=== PATIENT | female | born 1990 | race Caucasian/White ===

== ENCOUNTER 2022-03-02 11:40 | Outpatient (CLI) | payer BC, SELFPAY ==
--- NOTE | 2022-03-02 12:01 | US_ITS ---
WS: [id number] EARLY OBSTETRICAL ULTRASOUND (<14 WEEKS). HISTORY: VAGINAL BLEEDING,SECOND TRIMESTER COMPARISON: None available. Uterus is mildly enlarged. No intrauterine gestation is identified. There is a complex mass with scat tered cystic areas filling the endometrium with increased vascularity. Mass measures 5.2 x 7.1 cm and extends over a lengthof 6.7 cm. No free fluid in the cul-de-sac. RIGHT ovary is not visualized. LEFT ovary measures 3.5 x 2.2 x 3.2 cm. US/US OB <=14 wk fetus w transvag IMPRESSION: 1. No intrauterine gestation identified. 2. Hyperechoic mass within the endometrium with scattered cystic areas. Differ ential includes molar and and less likely retained products of concep tion. There is no intrauterine gestation.
== END 2022-03-02 11:41 | disposition home or self-care (01) ==
PROVIDERS: Visit Provider Family Medicine
DX: N85.8 Other specified noninflammatory disorders of uterus (principal)
CPT/HCPCS: 76801; 76817

== ENCOUNTER 2022-03-04 13:03 | Day surgery (SDC) | payer BC, SELFPAY ==
[2022-03-04] VITALS (14 sets, daily range): BP systolic 82–138; BP diastolic 56–89; PULSE 40–91; RESP 12–18; TEMP 36.2–36.7; O2SAT 99–100
--- NOTE | 2022-03-04 13:16 | US_ITS ---
WS: [id number] ULTRASOUND PELVIS TECHNIQUE: Transvaginal. CLINICAL INFORMATION: molar preg LMP: : No. COMPARISON: March 02, 2022 FINDINGS: No intrauterine gestation. Again seen is complex echogenic masslike tissue distending the e ndometrial canal today mainly in the lower uterine segment extending into the cervix. This is improve d compared to previous. Today this measures approximately 5.9 x 4.0 X 2.5 cm. Previously this measure d 5.2 x 7.1 x 6.7 cm Recommend Follow-up to resolution. Uterus Orientation: Anteverted. Size: 10.0 x 4.3 x 4.7 cm Endometrium: Thickened Endometrium thickness: 18 Mm. Adnexa: Ovaries not evaluated today due to patient's pain Free fluid: Trace Other findings: None. US/US transvaginal [id number] IMPRESSION: 1. Persistent masslike echogenic tissue with distention of the endometrial can al suspicious for molar improved compared to previous. Today this inv olves mainly the lower uterine segment and extends into the cervix. Recommend c ontinued surveillance to resolution and correlation beta-hCG.. 2. Thickened endometrium measuring 18 mm. 3. Trace free fluid in the cul-de-sac. 4. Ovaries not evaluated due to patient's pain.
--- NOTE | 2022-03-04 13:17 | W.ED.ABDPA2 ---
HPI - Abdominal Pain General: Chief Complaint: Abdominal Pain Stated Complaint: bleeding/n/v Time Seen by Provider: 03/04/22 13:11 History of Present Illness: 31-year-old presents due to lower abdominal pain nausea and nonbloody nonbilious vomiting. She has a known molar . Was seen by CREEL CLEANER today. She also reports some vaginal bleeding that has not changed. She presents back to the ER due to her abdominal pain nausea and vomiting being unbearable at home after she left the [employer] office. Review of Systems Narrative: - CONSTITUTIONAL: Denies weight loss, fever and chills. - HEENT: Denies changes in vision and hearing. - RESPIRATORY: Denies SOB and cough. - CV: Denies palpitations and CP. - GI: As above - : As above - MSK: Denies myalgia and joint pain. - SKIN: Denies rash and pruritus. - NEUROLOGICAL: Denies headache, weakness, numbness and syncope. - PSYCHIATRIC: Denies suicidal ideation [facility] PFSH: Family History (Updated 03/04/22 @ 09:32 by Ally Lacy LPN) Grandmother Cervical cancer Maternal Cancer Paternal--lung cancer Diabetes Maternal Grandfather Cancer paternal- colon cancer Family/Other Diabetes Maternal uncle Mother Hypertension Denies family history of CAD (coronary artery disease) Clotting disorder Hyperlipidemia Chronic kidney disease (CKD) Bleeding disorder Thyroid disease Stroke Physical Exam Narrative: EXAM NARRATIVE: - GENERAL: Alert and oriented x 3. No acute distress. Well-nourished. - EYES: EOMI. Anicteric. - HENT: Atraumatic, no C-spine tenderness. Moist mucous membranes. No scleral icterus. No cervical lymphadenopathy. - LUNGS: Clear to auscultation bilaterally. No accessory muscle use. Equal lung sounds bilaterally. No respiratory distress. - CARDIOVASCULAR: Regular rate and rhythm. No murmur. No JVD. - ABDOMEN: Soft, tender in bilateral lower quadrants, non-distended. Negative CVA tenderness bilaterally, no rebound or guarding, negative Marin sign. No palpable masses. - EXTREMITIES: No edema. Non-tender. - SKIN: No rashes or lesions. Warm. - NEUROLOGIC: No meningismus or focal neurological deficits. CN II-XII grossly intact. - PSYCHIATRIC: Cooperative. Appropriate mood and affect. Course Vital Signs: Vital signs: Vital Signs Temperature 98.0 F 03/04/22 13:08 Pulse Rate 61 03/04/22 15:00 Respiratory Rate 16 03/04/22 15:00 Blood Pressure 133/87 03/04/22 15:00 Pulse Oximetry 100 03/04/22 15:00 MDM - Abdominal Pain Medical Decision Making 31-year-old presents due to abdominal pain. She has known molar . There is white count elevation of 15. Discussed with [employer]EL CLE[employer]ER who specifically requested repeat ultrasound which reveals persistency of molar . Discussed again with CREEL CLEANER, Dr. Severino who will take patient to the OR and admit to their service. Further evaluation management per [employer]. Patient admitted in stable condition. Lab Data : 03/04/22 13:17 03/04/22 13:17 Labs/Radiology: Radiology Impressions Transvaginal US 03/04/22 13:16 IMPRESSION: 1. Persistent masslike echogenic tissue with distention of the endometrial canal suspicious for molar improved compared to previous. Today this involves mainly the lower uterine segment and extends into the cervix. Recommend continued surveillance to resolution and correlation beta-hCG.. 2. Thickened endometrium measuring 18 mm. 3. Trace free fluid in the cul-de-sac. 4. Ovaries not evaluated due to patient's pain. Laboratory Results WBC 15.3 10^3/uL (4.0-10.0) H 03/04/22 13:17 RBC 4.65 10^6/uL (4.1-5.3) 03/04/22 13:17 Hgb 13.6 g/dL (11.5-15.3) 03/04/22 13:17 Hct 41.0 % (37.0-47.0) 03/04/22 13:17 MCV 88.2 fl (81-99) 03/04/22 13:17 MCH 29.2 pg (28.0-34.0) 03/04/22 13:17 MCHC 33.2 g/dL (30.0-36.0) 03/04/22 13:17 RDW 13.7 % (12.1-15.1) 03/04/22 13:17 Plt Count 280 10^3/cmm (130-400) 03/04/22 13:17 MPV 11.7 fL (7.4-10.4) H 03/04/22 13:17 Neut % (Auto) 82.7 % 03/04/22 13:17 Lymph % (Auto) 13.2 % 03/04/22 13:17 [place] % (Auto) 3.1 % 03/04/22 13:17 Eos % (Auto) 0.0 % 03/04/22 13:17 Baso % (Auto) 0.5 % 03/04/22 13:17 Neut # (Auto) 12.68 10^3/uL (1.8-7.7) H 03/04/22 13:17 Lymph # (Auto) 2.0 10^3/uL (0.8-4.8) 03/04/22 13:17 [place] # (Auto) 0.5 10^3/uL (0.2-0.9) 03/04/22 13:17 Eos # (Auto) 0.0 10^3/uL (0.0-0.8) 03/04/22 13:17 Baso # (Auto) 0.1 10^3/uL (0.0-0.1) 03/04/22 13:17 Nucleated RBC % (auto) 0 % 03/04/22 13:17 Nucleated RBCs # 0.0 /100WBC 03/04/22 13:17 Sodium 139 mmol/L (136-145) 03/04/22 13:17 Potassium 3.9 mmol/L (3.5-5.1) 03/04/22 13:17 Chloride 103 mmol/L (98-107) 03/04/22 13:17 Carbon Dioxide 24 mmol/L (22-29) 03/04/22 13:17 Anion Gap 15.9 (5-19) 03/04/22 13:17 BUN 10 mg/dL (6-20) 03/04/22 13:17 Creatinine 0.6 mg/dL (0.5-0.9) 03/04/22 13:17 GFR Calculation 116.6 mL/min (90-130) 03/04/22 13:17 Glucose 124 mg/dL (65-115) H 03/04/22 13:17 Calculated Osmolality 288 mOsm/kg (285-295) 03/04/22 13:17 Calcium 9.2 mg/dL (8.5-10.5) 03/04/22 13:17 Total Bilirubin 0.4 mg/dL (0.15-1.2) 03/04/22 13:17 AST 21 U/L (0-32) 03/04/22 13:17 ALT 17 U/L (0-33) 03/04/22 13:17 Alkaline Phosphatase 63 IU/L (35-105) 03/04/22 13:17 Total Protein 7.8 g/dL (6.6-8.7) 03/04/22 13:17 Albumin 4.6 g/dL (3.5-5.2) 03/04/22 13:17 Globulin 3.2 g/dL (1.3-4.6) 03/04/22 13:17 Urine Color Red (Yellow) 03/04/22 15:46 Urine Appearance Bloody (CLEAR) A 03/04/22 15:46 Urine pH 5 (5-7) 03/04/22 15:46 Ur Specific [place] 1.025 (1.005-1.030) 03/04/22 15:46 Urine Protein 2+ (Negative) H 03/04/22 15:46 Urine Glucose (UA) Norm (Normal) 03/04/22 15:46 Urine Ketones 2+ (Negative) H 03/04/22 15:46 Urine Blood 3+ (Negative) H 03/04/22 15:46 Urine Nitrate Negative (Negative) 03/04/22 15:46 Urine Bilirubin 1+ (Negative) H 03/04/22 15:46 Urine Urobilinogen 1 mg/dL (Negative) H 03/04/22 15:46 Ur Leukocyte Esterase 1+ (Negative) H 03/04/22 15:46 Amorphous Sediment Not Reportable 03/04/22 15:46 Discharge Plan Discharge Condition: Stable Prescriptions: No Action albuterol sulfate 90 mcg/actuation HFA aerosol inhaler 2 puff INHALATION Q4H PRN (Reason: Shortness Of Breath) 0RF 28 mg iron- 800 mcg Tablet 1 tab PO DAILY 0RF Coding Level of Care Code ED 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
[2022-03-04 13:26] LABS: Basophils # 0.1 10^3/uL (0.0-0.1); Basophils % 0.5 %; Hemoglobin 13.6 g/dL (11.5-15.3); Lymphocytes % 13.2 %; Mean Corpuscular HGB Conc 33.2 g/dL (30.0-36.0); Mean Corpuscular Hemoglobin 29.2 pg (28.0-34.0); Mean Corpuscular Volume 88.2 fl (81-99); Mean Platelet Volume 11.7 fL (7.4-10.4); Monocytes # 0.5 10^3/uL (0.2-0.9); Monocytes % 3.1 %; Neutrophils # 12.68 10^3/uL (1.8-7.7); Neutrophils % 82.7 %; Nucleated Red Blood Cells % 0 %; Platelet Count 280 10^3/cmm (130-400); Red Blood Count 4.65 10^6/uL (4.1-5.3); Red Cell Distribution Width 13.7 % (12.1-15.1); White Blood Count 15.3 10^3/uL (4.0-10.0)
[2022-03-04 13:43] LABS: Alanine Aminotransferase 17 U/L (0-33); Albumin Level 4.6 g/dL (3.5-5.2); Alkaline Phosphatase 63 IU/L (35-105); Anion Gap 15.9 (5-19); Aspartate Amino Transferase 21 U/L (0-32); Blood Urea Nitrogen 10 mg/dL (6-20); Calcium 9.2 mg/dL (8.5-10.5); Carbon Dioxide 24 mmol/L (22-29); Chloride 103 mmol/L (98-107); Globulin 3.2 g/dL (1.3-4.6); Glomerular Filtration Rate 116.6 mL/min (90-130); Glucose 124 mg/dL (65-115); Osmolality Calculated 288 mOsm/kg (285-295); Potassium 3.9 mmol/L (3.5-5.1); Sodium 139 mmol/L (136-145); Total Bilirubin 0.4 mg/dL (0.15-1.2); Total Protein 7.8 g/dL (6.6-8.7)
[2022-03-04] MEDS: morphine 4 mg/mL SDV 1 mL IVP (14:02)
[2022-03-04] MEDS: ondansetron 2 mg/ML SDV 2 mL 4 MG IVP (14:02)
[2022-03-04] MEDS: sodium chloride 0.9% 1,000 ML 999 ML IV (14:03)
[2022-03-04 16:24] LABS: Bilirubin Urine 1+ (Negative); Blood Urine 3+ (Negative); Glucose Urine UA Norm (Normal); Ketones Urine 2+ (Negative); Leukocyte Esterase Urine 1+ (Negative); Nitrate Urine Negative (Negative); Protein Urine 2+ (Negative); Specific Gravity, Urine 1.025 (1.005-1.030); Urine Appearance Bloody (CLEAR); Urine Color Red (Yellow); Urobilinogen Urine 1 mg/dL (Negative); pH Urine 5 (5-7)
--- NOTE | 2022-03-04 17:01 | PM.CONSULT ---
Providers/Reason For Consult Consulting Physician/Specialty*: Dr Haleigh Severino MD Reason for Consult*: molar /nausea/vomiting/bleeding Requesting Physician: Dr. Stahl History of Present Illness History of Present Illness Charlee Houston is a 31 year old female who was seen in the office today to schedule surgery for a molar . That surgery was scheduled for 03/09/22. Shortly after being seen, the patient began feeling very nauseous and began vomiting. She cannot keep anything down. She presented to the ER where she was given medication to help the nausea and pain, but the patient continued to have vomiting. She had a repeat ultrasound which confirmed a molar . I have discussed with the patient moving her surgery up to today. She agrees to proceed. Review of Systems General: Reports: 10 or more systems reviewed and unremarkable except in HPI and below Medications/Allergies Home Medications Medication Instructions Recorded Confirmed Last Taken Type albuterol sulfate 90 mcg/actuation 2 puff INHALATION Q4H PRN 03/04/22 03/04/22 Unknown History aerosol inhaler vit no.95-ferrous 1 tab PO DAILY 03/04/22 03/04/22 03/03/22 History fumarate 28 mg-folic acid 800 mcg tablet () Allergies Allergy/AdvReac Type Severity Reaction Status Date / Time bee venom protein (honey bee) Allergy Severe ALGY-Anaphy Verified 03/04/22 14:12 laxis PFSH Acute PFSH: Medical History (Updated 03/04/22 @ 17:12 by Haleigh Severino MD) Molar No pertinent past medical history TBI (traumatic brain injury) 2020 Surgical History (Updated 03/04/22 @ 17:12 by Haleigh Severino MD) No pertinent past surgical history Family History (Updated 03/04/22 @ 09:32 by Ally Lacy LPN) Grandmother Cervical cancer Maternal Cancer Paternal--lung cancer Diabetes Maternal Grandfather Cancer paternal- colon cancer Family/Other Diabetes Maternal uncle Mother Hypertension Denies family history of CAD (coronary artery disease) Clotting disorder Hyperlipidemia Chronic kidney disease (CKD) Bleeding disorder Thyroid disease Stroke Female Reproductive History: : 1 Vitals/I&O/Wt Last Vital Signs Temp 98.0 F 03/04/22 13:08 Pulse 61 03/04/22 15:00 Resp 16 03/04/22 15:00 BP 133/87 03/04/22 15:00 Pulse Ox 100 03/04/22 15:00 03/04/22 03/04/22 03/04/22 06:59 14:59 22:59 Intake Total 1000 / 1000 Balance 1000 / 1000 Physical Exam Narrative: The patient is ill appearing. She has receptacle and is actively vomiting. Const: COMMON NORMALS: patient oriented x3 and no limitations GENERAL APPEARANCE: cooperative, in distress and ill appearing ORIENTATION/CONSCIOUSNESS: Yes awake, Yes oriented to person, Yes oriented to place and Yes oriented to time Resp: COMMON NORMALS: normal respiratory effort EFFORT & INSPECTION: Yes able to speak in complete sentences GI: COMMON NORMALS: Soft to palpation and non-tender PALPATION: Yes Soft to palpation Extremity: COMMON NORMALS: no calf tenderness Neuro: COMMON NORMALS: patient oriented x3 SENSORIUM/ORIENTATION: Yes oriented to person, Yes oriented to place and Yes oriented to time Psych: COMMON NORMALS: mental status grossly normal, Normal thought process present, cooperative, normal affect and speech normal SPEECH: Yes normal speech THOUGHT PROCESS: Normal thought process present Data : 03/04/22 13:17 03/04/22 13:17 A&P Assessment and plan (1) Molar : plan to take to operating room for suction D&C Surgery team has been notified Status: Acute Coding Level of Care Code Acute Digital Circuit Designer for Chg Fwd Diagnoses Molar O02.0
[2022-03-04] MEDS: fentaNYL 50 mcg/mL INJ 2mL IVP (17:02)
[2022-03-04 17:30] LABS: Add Urine Culture? Yes; RBC Urine TOO NUMEROUS TO CNT /hpf (0-2); Squamous Epithelial Cell Urine 0-4 /hpf (0-5); WBC Urine 0-4 /hpf (0-5)
--- NOTE | 2022-03-04 17:47 | ANES.PREANE2 ---
Pre-Anesthetic Assessment Height/Weight: Height 1.68 m Temp Pulse Resp BP Pulse Ox 98.0 F 61 16 133/87 100 03/04/22 13:08 03/04/22 15:00 03/04/22 15:00 03/04/22 15:00 03/04/22 15:00 Preop Diagnosis: molar Operation Date: 03/04/22 18:00 Proposed Procedures p Dilation And Curettage w/ Suction(Not Applicable) - Haleigh Severino MD Familial anesthetic complications: None Was Beta Beverly taken within 24 hours: N/A Was Clonidine taken within 24 hours: N/A Last intake: > 8hrs Social No alcohol and No tobacco Exam alert, oriented x 3, clear to auscultation bilaterally and regular rate & rhythm Airway Mallampati: Class II Dentition: full 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) Anesthetic Plan ASA status: 2 Anesthesia: General Risk of > 500 ml blood loss (7ml/kg in children): No Medications/Allergies Home Medications Medication Instructions Recorded Confirmed Last Taken Type albuterol sulfate 90 mcg/actuation 2 puff INHALATION Q4H PRN 03/04/22 03/04/22 Unknown History aerosol inhaler vit no.95-ferrous 1 tab PO DAILY 03/04/22 03/04/22 03/03/22 History fumarate 28 mg-folic acid 800 mcg tablet () Allergies Allergy/AdvReac Type Severity Reaction Status Date / Time bee venom protein (honey bee) Allergy Severe ALGY-Anaphy Verified 03/04/22 14:12 laxis [facility] Anesthesia Medical History (Updated 03/04/22 @ 17:12 by Haleigh Severino MD) Molar No pertinent past medical history TBI (traumatic brain injury) 2020 Surgical History (Updated 03/04/22 @ 17:12 by Haleigh Severino MD) No pertinent past surgical history Family History (Updated 03/04/22 @ 09:32 by Ally Lacy LPN) Grandmother Cervical cancer Maternal Cancer Paternal--lung cancer Diabetes Maternal Grandfather Cancer paternal- colon cancer Family/Other Diabetes Maternal uncle Mother Hypertension Denies family history of CAD (coronary artery disease) Clotting disorder Hyperlipidemia Chronic kidney disease (CKD) Bleeding disorder Thyroid disease Stroke Female Reproductive History : 1 Data Anesthesia : 03/04/22 13:17 03/04/22 13:17 Short CBC 03/04/22 Range/Units 13:17 WBC 15.3 H (4.0-10.0) 10^3/uL Hgb 13.6 (11.5-15.3) g/dL Hct 41.0 (37.0-47.0) % MCV 88.2 (81-99) fl Plt Count 280 (130-400) 10^3/cmm Neut % (Auto) 82.7 % Neut # (Auto) 12.68 H (1.8-7.7) 10^3/uL BMP 03/04/22 13:17 Sodium 139 Potassium 3.9 Chloride 103 Carbon Dioxide 24 BUN 10 Creatinine 0.6 Glucose 124 H Calcium 9.2 Liver Function 03/04/22 Range/Units 13:17 Total Bilirubin 0.4 (0.15-1.2) mg/dL AST 21 (0-32) U/L ALT 17 (0-33) U/L Alkaline Phosphatase 63 (35-105) IU/L Albumin 4.6 (3.5-5.2) g/dL Urine 03/04/22 Range/Units 15:46 Urine Color Red (Yellow) Urine Appearance Bloody A (CLEAR) Urine pH 5 (5-7) Ur Specific [place] 1.025 (1.005-1.030) Urine Protein 2+ H (Negative) Urine Glucose (UA) Norm (Normal) Urine Ketones 2+ H (Negative) Urine Nitrate Negative (Negative) Urine Bilirubin 1+ H (Negative) Ur Leukocyte Esterase 1+ H (Negative) Urine RBC Too numerous to cnt H (0-2) /hpf Urine WBC 0-4 H (0-5) /hpf Cardiac Studies: No Data to Display
[2022-03-04] MEDS: sodium chloride 0.9% 1,000 ML 30 ML IV (18:15)
--- NOTE | 2022-03-04 22:43 | PM.OP ---
Operative Report Date of procedure: March 04, 2022 Pre-op diagnosis: Preop Diagnosis molar Post-op diagnosis: same Post-op findings: 9 week sized uterus, normal appearing tissue removed Procedure done: suction dilation and curettage Specimens removed/disposition: products of conception to pathology Surgeon: Haleigh Severino Anesthesia: General Estimated blood loss (mL): 5 IV fluids (mL): 500 Complications: none Findings: 9 week sized uterus Condition: stable Disposition: PACU Procedure: The patient was taken to the operating room where general anesthesia was administered and found to be adequate. She was prepped and draped in the normal sterile fashion in the dorsal lithotomy position in [facility]. The bladder was drained. A weighted speculum was placed into the vagina and the anterior lip of the cervix grasped with a single-tooth tenaculum. The cervix was dilated to 16 maltese and a 8 mm suction catheter was introduced into the uterine cavity. The suction was activated and products of conception were removed. I made 3 passes with the suction catheter followed by 1 pass with a sharp curette. The texture was gritty. I made another 3 passes with the suction curette. There was minimal blood loss. The uterus clamped down and all instruments were removed. The patient tolerated the procedure well. Sponge lap and needle counts were correct x3. She was taken to the recovery room in stable condition.
--- NOTE | 2022-03-04 22:48 | PM.DCS ---
Discharge Providers Date of Admission: 03/04/22 Date of Discharge: March 04, 2022 Attending Provider at Admission: Dr. Severino Attending Provider at Discharge: Haleigh Severino MD Diagnoses at Discharge Discharge Diagnosis (1) Molar : Status: Acute Reason for Visit Reason for Visit: bleeding/14wk preg Hospital Course Hospital Course The patient was admitted from the ER for molar . She had suction d&c. She did well postoperatively and was ready for discharge. Discharge Data Studies Completed and Pending Completed Studies During Hospitalization Category Date Time Status US transvaginal [id number] Stat Ultrasound 03/04/22 13:16 Completed Pending at discharge Category Date Time Status Urine Culture Stat Lab 03/04/22 15:46 Received Radiology Impressions Transvaginal US 03/04/22 13:16 IMPRESSION: 1. Persistent masslike echogenic tissue with distention of the endometrial canal suspicious for molar improved compared to previous. Today this involves mainly the lower uterine segment and extends into the cervix. Recommend continued surveillance to resolution and correlation beta-hCG.. 2. Thickened endometrium measuring 18 mm. 3. Trace free fluid in the cul-de-sac. 4. Ovaries not evaluated due to patient's pain. Laboratory Results WBC 15.3 10^3/uL (4.0-10.0) H 03/04/22 13:17 RBC 4.65 10^6/uL (4.1-5.3) 03/04/22 13:17 Hgb 13.6 g/dL (11.5-15.3) 03/04/22 13:17 Hct 41.0 % (37.0-47.0) 03/04/22 13:17 MCV 88.2 fl (81-99) 03/04/22 13:17 MCH 29.2 pg (28.0-34.0) 03/04/22 13:17 MCHC 33.2 g/dL (30.0-36.0) 03/04/22 13:17 RDW 13.7 % (12.1-15.1) 03/04/22 13:17 Plt Count 280 10^3/cmm (130-400) 03/04/22 13:17 MPV 11.7 fL (7.4-10.4) H 03/04/22 13:17 Neut % (Auto) 82.7 % 03/04/22 13:17 Lymph % (Auto) 13.2 % 03/04/22 13:17 [place] % (Auto) 3.1 % 03/04/22 13:17 Eos % (Auto) 0.0 % 03/04/22 13:17 Baso % (Auto) 0.5 % 03/04/22 13:17 Neut # (Auto) 12.68 10^3/uL (1.8-7.7) H 03/04/22 13:17 Lymph # (Auto) 2.0 10^3/uL (0.8-4.8) 03/04/22 13:17 [place] # (Auto) 0.5 10^3/uL (0.2-0.9) 03/04/22 13:17 Eos # (Auto) 0.0 10^3/uL (0.0-0.8) 03/04/22 13:17 Baso # (Auto) 0.1 10^3/uL (0.0-0.1) 03/04/22 13:17 Nucleated RBC % (auto) 0 % 03/04/22 13:17 Nucleated RBCs # 0.0 /100WBC 03/04/22 13:17 Sodium 139 mmol/L (136-145) 03/04/22 13:17 Potassium 3.9 mmol/L (3.5-5.1) 03/04/22 13:17 Chloride 103 mmol/L (98-107) 03/04/22 13:17 Carbon Dioxide 24 mmol/L (22-29) 03/04/22 13:17 Anion Gap 15.9 (5-19) 03/04/22 13:17 BUN 10 mg/dL (6-20) 03/04/22 13:17 Creatinine 0.6 mg/dL (0.5-0.9) 03/04/22 13:17 GFR Calculation 116.6 mL/min (90-130) 03/04/22 13:17 Glucose 124 mg/dL (65-115) H 03/04/22 13:17 Calculated Osmolality 288 mOsm/kg (285-295) 03/04/22 13:17 Calcium 9.2 mg/dL (8.5-10.5) 03/04/22 13:17 Total Bilirubin 0.4 mg/dL (0.15-1.2) 03/04/22 13:17 AST 21 U/L (0-32) 03/04/22 13:17 ALT 17 U/L (0-33) 03/04/22 13:17 Alkaline Phosphatase 63 IU/L (35-105) 03/04/22 13:17 Total Protein 7.8 g/dL (6.6-8.7) 03/04/22 13:17 Albumin 4.6 g/dL (3.5-5.2) 03/04/22 13:17 Globulin 3.2 g/dL (1.3-4.6) 03/04/22 13:17 Ser , Semi-Qnt 5767.00 mIU/mL 03/04/22 13:17 Urine Color Red (Yellow) 03/04/22 15:46 Urine Appearance Bloody (CLEAR) A 03/04/22 15:46 Urine pH 5 (5-7) 03/04/22 15:46 Ur Specific [place] 1.025 (1.005-1.030) 03/04/22 15:46 Urine Protein 2+ (Negative) H 03/04/22 15:46 Urine Glucose (UA) Norm (Normal) 03/04/22 15:46 Urine Ketones 2+ (Negative) H 03/04/22 15:46 Urine Blood 3+ (Negative) H 03/04/22 15:46 Urine Nitrate Negative (Negative) 03/04/22 15:46 Urine Bilirubin 1+ (Negative) H 03/04/22 15:46 Urine Urobilinogen 1 mg/dL (Negative) H 03/04/22 15:46 Ur Leukocyte Esterase 1+ (Negative) H 03/04/22 15:46 Urine RBC Too numerous to cnt /hpf (0-2) H 03/04/22 15:46 Urine WBC 0-4 /hpf (0-5) H 03/04/22 15:46 Ur Squamous Epith Cells 0-4 /hpf (0-5) H 03/04/22 15:46 Amorphous Sediment Not Reportable 03/04/22 15:46 Urine Bacteria None /hpf (NONE) 03/04/22 15:46 Blood Type A Positive 03/04/22 17:56 Rho(D) Type Positive 03/04/22 17:56 Antibody Screen Negative 03/04/22 17:56 Vitals Last Vital Signs Temp 98.0 F 03/04/22 17:25 Pulse 47 L 03/04/22 18:10 Resp 18 03/04/22 17:25 BP 125/65 03/04/22 18:10 Pulse Ox 99 03/04/22 18:10 Discharge Plan Discharge Patient Disposition: Home Condition: Stable Prescriptions: Continued albuterol sulfate 90 mcg/actuation HFA aerosol inhaler 2 puff INHALATION Q4H PRN (Reason: Shortness Of Breath) 0RF 28 mg iron- 800 mcg Tablet 1 tab PO DAILY 0RF Discharge Orders: Discharge Order (Routine); Ordered 03/04/22 Ordered By: Haleigh Severino Referrals: Haleigh Severino MD [Physician] - Patient Instructions: Post Anesthesia Care Discharge Attestations Time Spent in Discharge Care*: less than 30 min Quality Metrics Clinical Quality Measures [ No reported AMI, CVA or VTE this stay] Coding Level of Care Code Acute Chg FW DC note Diagnoses Molar O02.0
--- NOTE | 2022-03-04 22:57 | SUR.PHASEI ---
patient came into pacu asleep, on room air. sat at 100%. samanta pad in place. no pain per faces.
--- NOTE | 2022-03-04 23:09 | SUR.PHASEI ---
patient taken to ops, says she wanted to see her . patient still drowsy but states no pain. samanta pad in place
== END 2022-03-04 23:37 | disposition home or self-care (01) ==
LOC: ER 13:18 → OR 17:12
PROVIDERS: Emergency Provider Emergency Medicine; Visit Provider Obstetrics & Gynecology
PROC: (CPT 59820; principal; 2022-03-04 18:00)
DX: O02.0 Blighted ovum and nonhydatidiform mole (principal)
CPT/HCPCS: 59820; 76830; 80053; 81001; 84702; 85025; 86850; 86900; 87086; 88305; J2250; J2270; J2405; J2704; J3010; J7030

== ENCOUNTER → 2022-05-17 15:01 | Outpatient (BNVA) | payer BC, SELFPAY | PROVIDERS: Visit Provider Obstetrics & Gynecology | DX: Z34.90 Encounter for supervision of normal pregnancy, unspecified, unspecified trimester (principal) | CPT/HCPCS: 84702 ==

== ENCOUNTER → 2022-06-17 10:30 | Outpatient (BNVA) | payer BC, SELFPAY | PROVIDERS: Visit Provider Obstetrics & Gynecology | DX: Z34.90 Encounter for supervision of normal pregnancy, unspecified, unspecified trimester (principal) | CPT/HCPCS: 80307; 81000; 87086 ==

== ENCOUNTER → 2022-06-28 15:00 | Outpatient (BNVA) | payer BC, SELFPAY | PROVIDERS: Visit Provider Obstetrics & Gynecology | DX: Z34.90 Encounter for supervision of normal pregnancy, unspecified, unspecified trimester (principal) | CPT/HCPCS: 84315; 85025; 86762; 86803; 87086; 87340; 87491; 87591; 87624; 87661; 87806 ==

== ENCOUNTER → 2022-07-29 09:32 | Outpatient (BNVA) | payer BC, SELFPAY | PROVIDERS: Visit Provider Obstetrics & Gynecology | DX: Z34.90 Encounter for supervision of normal pregnancy, unspecified, unspecified trimester (principal) | CPT/HCPCS: 84315; 87086 ==

== ENCOUNTER → 2022-08-25 15:40 | Outpatient (BNVA) | payer BC, SELFPAY | PROVIDERS: Visit Provider Obstetrics & Gynecology | DX: Z34.90 Encounter for supervision of normal pregnancy, unspecified, unspecified trimester (principal) | CPT/HCPCS: 84315; 84443; 86592 ==

== ENCOUNTER → 2022-09-20 08:25 | Outpatient (BNVA) | payer OTHER, BC, SELFPAY | PROVIDERS: Visit Provider Nurse Practitioner Women's Health | DX: Z34.90 Encounter for supervision of normal pregnancy, unspecified, unspecified trimester (principal); F41.9 Anxiety disorder, unspecified | CPT/HCPCS: 82950; 84315; 85025 ==

== ENCOUNTER 2022-11-07 23:55 | Outpatient (CLI) | payer OTHER, BC, SELFPAY ==
[2022-11-08] VITALS (8 sets, daily range): BP systolic 133–161; BP diastolic 75–87; PULSE 47–52; RESP 16; TEMP 36.1; BMI 39.9
[2022-11-08 01:22] LABS: Add Urine Microscopic? NO; Charge for UA Resulting for Rev
[2022-11-08 01:23] LABS: Basophils % 0.3 %; Eosinophils % 0.1 %; Hematocrit 31.6 % (37.0-47.0); Hemoglobin 10.3 g/dL (11.5-15.3); Lymphocytes # 2.3 10^3/uL (0.8-4.8); Lymphocytes % 25.9 %; Mean Corpuscular HGB Conc 32.6 g/dL (30.0-36.0); Mean Corpuscular Hemoglobin 28.1 pg (28.0-34.0); Mean Corpuscular Volume 86.3 fl (81-99); Mean Platelet Volume 12.7 fL (7.4-10.4); Monocytes # 0.6 10^3/uL (0.2-0.9); Monocytes % 6.1 %; Neutrophils # 6.01 10^3/uL (1.8-7.7); Neutrophils % 67.3 %; Nucleated Red Blood Cells % 0 %; Platelet Count 198 10^3/cmm (130-400); Red Blood Count 3.66 10^6/uL (4.1-5.3); Red Cell Distribution Width 13.6 % (12.1-15.1)
[2022-11-08 01:39] LABS: Glucose Urine UA Norm (Normal); Protein Urine Neg (Negative); Urine Appearance Clear (CLEAR); Urine Color Yellow (Yellow); pH Urine 5 (5-7)
[2022-11-08 01:40] LABS: Bilirubin Urine Neg (Negative); Blood Urine Neg (Negative); Ketones Urine Negative (Negative); Leukocyte Esterase Urine Negative (Negative); Nitrate Urine Negative (Negative); Urobilinogen Urine Neg (Negative)
[2022-11-08 01:48] LABS: Alanine Aminotransferase 10 U/L (0-33); Alkaline Phosphatase 95 U/L (35-105); Anion Gap 15.7 (5-19); Aspartate Amino Transferase 13 U/L (0-32); Blood Urea Nitrogen 13 mg/dL (6-20); Calcium 8.9 mg/dL (8.5-10.5); Carbon Dioxide 21 mmol/L (22-29); Chloride 105 mmol/L (98-107); Globulin 2.7 g/dL (1.3-4.6); Glucose 78 mg/dL (65-115); Osmolality Calculated 285 mOsm/kg (285-295); Potassium 3.7 mmol/L (3.5-5.1); Sodium 138 mmol/L (136-145); Total Bilirubin 0.2 mg/dL (0.15-1.2); Total Protein 5.7 g/dL (6.6-8.7); Uric Acid 4.6 mg/dL (2.4-5.7)
[2022-11-08 01:51] LABS: Urine Creatinine 121 mg/dL (28-217); Urine Protein Random 19 mg/dL
[2022-11-08 02:01] LABS: UPRO/UCREAT Ratio 0.16 mg/mg CR
== END 2022-11-08 02:40 | disposition home or self-care (01) ==
LOC: OPOB 11-08 00:17 → OBGYN 11-08 00:21
PROVIDERS: Visit Provider Obstetrics & Gynecology
DX: O16.9 Unspecified maternal hypertension, unspecified trimester (principal); Z3A.00 Weeks of gestation of pregnancy not specified
CPT/HCPCS: 36415; 59025; 80053; 81003; 82570; 84156; 84550; 85025; 99211

== ENCOUNTER 2022-11-12 11:28 | Outpatient (CLI) | payer BC, OTHER, SELFPAY ==
--- NOTE | 2022-11-12 11:47 | US_ITS ---
WS: [id number] BIOPHYSICAL PROFILE AMNIOTIC FLUID HISTORY: GHTN COMPARISON: 08/25/2022 position: Vertex. Cardiac activity: 153 bpm. Cervix: Not visualized. Placenta: Posterior, no previa or abruption. Placenta grade: 1 Parameters are as follows: Breathin Movement: 2 Tone: 2 Fluid volume: 2 Amniotic fluid: Single deep vertical pocket 5.2 cm. US/US OB BPP wo NST [id number] IMPRESSION: 1. Biophysical profile score: 8/8. 2. Normal amniotic fluid index.
--- NOTE | 2022-11-12 11:50 | XR_ITS ---
WS: [id number] XR chest 1V portable [id number] REASON FOR EXAM: GHTN FINDINGS: Thoracic aorta and mediastinum are within normal limits. Heart size is within normal limits. Mild distention of upper lobe pulmonary veins. No definite interstitial edema. No pleural effusions. Bony thorax intact without focal abnormality. XR/XR chest 1V portable [id number] IMPRESSION: Mild distention of upper lobe pulmonary veins.
--- NOTE | 2022-11-12 11:53 | ECG_ITS ---
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
[2022-11-12 11:54] VITALS: RESP 18
[2022-11-12 11:56] VITALS: BP 140/90; PULSE 79; BMI 39.6
[2022-11-12 12:00] VITALS: RESP 17; TEMP 36.8
[2022-11-12 12:06] LABS: Basophils % 0.5 %; Eosinophils % 0.1 %; Hemoglobin 11.6 g/dL (11.5-15.3); Lymphocytes # 1.5 10^3/uL (0.8-4.8); Lymphocytes % 19.9 %; Mean Corpuscular HGB Conc 33.1 g/dL (30.0-36.0); Mean Corpuscular Hemoglobin 27.8 pg (28.0-34.0); Mean Corpuscular Volume 83.9 fl (81-99); Mean Platelet Volume 12.5 fL (7.4-10.4); Monocytes # 0.4 10^3/uL (0.2-0.9); Monocytes % 5.4 %; Neutrophils # 5.68 10^3/uL (1.8-7.7); Neutrophils % 73.7 %; Nucleated Red Blood Cells % 0 %; Platelet Count 223 10^3/cmm (130-400); Red Blood Count 4.17 10^6/uL (4.1-5.3); Red Cell Distribution Width 13.3 % (12.1-15.1); White Blood Count 7.7 10^3/uL (4.0-10.0)
[2022-11-12 12:11] VITALS: BP 157/92; PULSE 79
[2022-11-12 12:27] LABS: Alanine Aminotransferase 9 U/L (0-33); Albumin Level 3.4 g/dL (3.5-5.2); Alkaline Phosphatase 106 U/L (35-105); Anion Gap 15.9 (5-19); Aspartate Amino Transferase 15 U/L (0-32); Blood Urea Nitrogen 11 mg/dL (6-20); Carbon Dioxide 20 mmol/L (22-29); Chloride 105 mmol/L (98-107); Globulin 3.1 g/dL (1.3-4.6); Glomerular Filtration Rate 115.9 mL/min (90-130); Glucose 87 mg/dL (65-115); Osmolality Calculated 283 mOsm/kg (285-295); Potassium 3.9 mmol/L (3.5-5.1); Sodium 137 mmol/L (136-145); Total Bilirubin 0.2 mg/dL (0.15-1.2); Total Protein 6.5 g/dL (6.6-8.7); Uric Acid 5.5 mg/dL (2.4-5.7)
[2022-11-12 12:29] LABS: Urine Appearance Hazy (CLEAR); Urine Color Yellow (Yellow); pH Urine 5 (5-7)
[2022-11-12 12:30] LABS: Add Urine Culture? No; Bacteria Urine 1+ /hpf; Bilirubin Urine Neg (Negative); Blood Urine Neg (Negative); Glucose Urine UA Norm (Normal); Ketones Urine Negative (Negative); Leukocyte Esterase Urine Trace (Negative); Mucus Urine 3+ /hpf; Nitrate Urine Negative (Negative); Protein Urine 1+ (Negative); Specific Gravity, Urine 1.015 (1.005-1.030); Urobilinogen Urine Neg (Negative); WBC Urine 0-4 /hpf (0-5)
[2022-11-12 12:37] LABS: Urine Creatinine 304 mg/dL (28-217)
[2022-11-12 12:40] LABS: UPRO/UCREAT Ratio 0.27 mg/mg CR; Urine Protein Random 81 mg/dL
[2022-11-12 13:53] VITALS: BP 139/84; PULSE 62
== END 2022-11-12 14:05 | disposition home or self-care (01) ==
LOC: OPOB 11:28 → OBGYN 11:29
PROVIDERS: Visit Provider Obstetrics & Gynecology
DX: O16.9 Unspecified maternal hypertension, unspecified trimester (principal); Z3A.00 Weeks of gestation of pregnancy not specified
CPT/HCPCS: 36415; 59025; 71045; 76819; 80053; 81001; 82570; 84156; 84550; 85025; 93005; 99211

== ENCOUNTER 2022-11-18 11:55 | Outpatient (CLI) | payer BC, OTHER, SELFPAY ==
[2022-11-18] VITALS (38 sets, daily range): BP systolic 148–188; BP diastolic 84–109; PULSE 73–100; RESP 18; O2SAT 92–97; BMI 39.5
[2022-11-18 12:27] LABS: Basophils # 0.1 10^3/uL (0.0-0.1); Basophils % 0.6 %; Hematocrit 35.3 % (37.0-47.0); Hemoglobin 11.8 g/dL (11.5-15.3); Lymphocytes # 1.4 10^3/uL (0.8-4.8); Mean Corpuscular HGB Conc 33.4 g/dL (30.0-36.0); Mean Corpuscular Hemoglobin 27.8 pg (28.0-34.0); Mean Corpuscular Volume 83.1 fl (81-99); Mean Platelet Volume 12.6 fL (7.4-10.4); Monocytes # 0.4 10^3/uL (0.2-0.9); Monocytes % 4.5 %; Neutrophils # 6.53 10^3/uL (1.8-7.7); Neutrophils % 77.5 %; Nucleated Red Blood Cells % 0 %; Platelet Count 240 10^3/cmm (130-400); Red Blood Count 4.25 10^6/uL (4.1-5.3); Red Cell Distribution Width 13.3 % (12.1-15.1); White Blood Count 8.4 10^3/uL (4.0-10.0)
[2022-11-18 12:44] LABS: Urine Creatinine 364 mg/dL (28-217)
[2022-11-18 12:58] LABS: UPRO/UCREAT Ratio 0.85 mg/mg CR; Urine Protein Random 311 mg/dL
[2022-11-18 13:13] LABS: Add Urine Microscopic? YES; Bilirubin Urine 1+ (Negative); Blood Urine 2+ (Negative); Glucose Urine UA Norm (Normal); Ketones Urine 1+ (Negative); Leukocyte Esterase Urine Trace (Negative); Nitrate Urine Negative (Negative); Protein Urine 3+ (Negative); Specific Gravity, Urine 1.025 (1.005-1.030); Urine Appearance Hazy (CLEAR); Urine Color Yellow (Yellow); Urobilinogen Urine Norm (Negative); pH Urine 5 (5-7)
[2022-11-18 13:14] LABS: Bacteria Urine TRACE /hpf; Hyaline Casts Urine 0-4 /lpf; Mucus Urine 2+ /hpf; RBC Urine 0-4 /hpf (0-2)
[2022-11-18 13:15] LABS: Red Blood Cell Casts Urine RARE /lpf
[2022-11-18] MEDS: dextrose 5%-lactated ringers 1,000 ML 75 ML IV (13:46)
[2022-11-18] MEDS: labetalol 5 mg/mL SDV 20mL 20 MG IVP (13:46)
[2022-11-18] MEDS: magnesium sulfate premix 4 GM/100 ML PREMIX IV (13:46)
[2022-11-18 13:48] LABS: Alanine Aminotransferase 9 U/L (0-33); Albumin Level 3.4 g/dL (3.5-5.2); Alkaline Phosphatase 112 U/L (35-105); Anion Gap 17.4 (5-19); Aspartate Amino Transferase 14 U/L (0-32); Blood Urea Nitrogen 15 mg/dL (6-20); Calcium 9.2 mg/dL (8.5-10.5); Carbon Dioxide 19 mmol/L (22-29); Chloride 105 mmol/L (98-107); Globulin 3.1 g/dL (1.3-4.6); Glucose 94 mg/dL (65-115); Osmolality Calculated 285 mOsm/kg (285-295); Potassium 4.4 mmol/L (3.5-5.1); Sodium 137 mmol/L (136-145); Total Bilirubin 0.2 mg/dL (0.15-1.2); Total Protein 6.5 g/dL (6.6-8.7); Uric Acid 5.2 mg/dL (2.4-5.7)
[2022-11-18] MEDS: magnesium sulfate premix 2 GM/50 ML PIGGYBACK IV (14:07)
[2022-11-18] MEDS: labetalol 5 mg/mL SDV 20mL 40 MG IVP (14:10)
[2022-11-18] MEDS: betamethasone susp 6 mg/mL 5 mL 12 MG IM (14:41)
--- NOTE | 2022-11-18 14:49 | P.PN_ITS ---
Subjective Subjective: Mrs. Huddleston 32-year-old female G2, P0 with an estimated gestational age at 32 weeks, referred to the clinic due to severe hypertension. Vitals/I&O/Wt Last Vital Signs Pulse 76 11/18/22 14:45 Resp 18 11/18/22 13:17 BP 151/95 11/18/22 14:38 Pulse Ox 97 11/18/22 14:45 Weight last 48 hrs Weight 111.13 kg Physical Exam Narrative: GA: Alert and oriented ?3. Lungs: Clear to auscultation bilaterally. Heart: Regular rhythm and rate. Abdomen: Gravid, full the height equals dates, nontender. CUSTOMER SALES ADVISOR: SVE; dilation: 0 cm, effacement: 0%, station: -5, presentation: vx, membranes: IM. Extremities: no edema, no cyanosis, no calves pain. heart tracing: Basal rate: 140's bpm, Variability: moderate, Accelerations: present, Decelerations: absent, Contraction: none. Urinary Catheter Management: Berry Latex Free: Cath Placed During This Visit: yes Urinary Catheter Date of Insertion: 11/18/22 Urinary Catheter Time of Insertion: 14:00 Data 11/18/22 12:09 11/18/22 12:09 Other Labs: Laboratory Tests 11/18/22 11/18/22 11/18/22 12:09 12:09 12:09 Hgb 11.8 Hct 35.3 L Plt Count 240 AST 14 ALT 9 Alkaline Phosphatase 112 H Urine Protein 3+ H Urine Creatinine Protein/Creatinin Ratio 11/18/22 12:09 Hgb Hct Plt Count AST ALT Alkaline Phosphatase Urine Protein Urine Creatinine 364 H Protein/Creatinin Ratio 0.85 A&P Assessment and plan (1) Severe pre-eclampsia affecting second : Mrs. Huddleston 32-year-old female G2, P3 with an EGA at 32+6 weeks, with severe preeclampsia. Treated with hypertensive medications. Magnesium sulfate given for seizure prophylaxis, corticosteroid for lung maturation also given. Patient was informed regarding severe preeclampsia and recommended management. Due to her prematurity transferred to higher echelon of care was recommended. She elected to be transferred to [facility]. Dr. Gordy Martinez BREWERY REPRESENTATIVE hospitalist accepted the patient. Plan Transferred to [facility] for Attestations Medical Necessity Statement*: In my professional opinion per admitting diagnosis Coding Level of Care Code Acute Code for Chg Fwd Diagnoses Severe pre-eclampsia affecting second O14.10
[2022-11-18] MEDS: magnesium sulfate premix 20 GM/500 ML BAG IV (14:53)
--- NOTE | 2022-11-18 14:55 | PC.NURSE ---
Called report to Marly Gtz at [facility] L&D at 1434 and called [facility] ambulance for transport at 1441.
--- NOTE | 2022-11-18 15:40 | PC.NURSE ---
Called and spoke with brett nevarez and discussed that patient was on the way to their facility.
== END 2022-11-18 15:30 | disposition skilled nursing facility (03) ==
LOC: OPOB 11:59 → OBGYN 12:01
PROVIDERS: Visit Provider Obstetrics & Gynecology
DX: O14.10 Severe pre-eclampsia, unspecified trimester (principal); Z3A.32 32 weeks gestation of pregnancy
CPT/HCPCS: 36415; 51702; 59025; 80053; 81001; 82570; 84156; 84550; 85025; 96372; 96374; 96376; 99211; J0702; J3475; J3490; J7121

== ENCOUNTER 2023-02-10 18:14 | Emergency (ER) | payer BC, OTHER, SELFPAY ==
[2023-02-10 18:35] VITALS: BP 155/99; PULSE 86; RESP 15; TEMP 36.9; O2SAT 99; BMI 32.3
[2023-02-10 19:33] VITALS: BP 144/90; PULSE 76; RESP 16; O2SAT 98
[2023-02-10 21:02] VITALS: BP 144/97; PULSE 72; RESP 16; O2SAT 99
--- NOTE | 2023-02-10 21:08 | W.ED.GENADLT ---
HPI - General Adult General: Chief complaint: Headache Stated complaint: Blood Pressure High Time Seen by Provider: 02/10/23 19:55 History of Present Illness: Patient is in today for elevated blood pressure. She reports that she is 12 weeks . She states that she had preeclampsia with her baby. She is breast-feeding. She states that she is on lisinopril and Procardia. She actually missed her Procardia doses for 2 days and just restarted them yesterday. She reports that yesterday her blood pressure was all over the place as high as 217/100s. She reports that she had a 10 out of 10 headache yesterday she knows she should have came in yesterday. She reports that when she was driving back from [place] today she developed a headache with some blurred vision and her blood pressure systolic was 197. She decided to come into the ER at that time. She reports that she has a 2-3 out of 10 headache at this time and it is not bad. She has no other visual disturbance or symptoms reported at this time. Associated symptoms: Reports headache(s) (2-3 out of 10); Deny chest pain, dyspnea, nausea, palpitations, syncope or vomiting Review of Systems Const: Denies: fever(s), chills or body aches Eyes: Reports: blurry vision ENMT: Denies: throat pain Card: Denies: chest pain, palpitations, irregular heart rhythm, lightheadedness or syncope Resp: Denies: dyspnea, productive cough or non-productive cough GI: Denies: abdominal pain, nausea or vomiting : Denies: flank pain, difficulty voiding, dysuria, urinary frequency, urinary urgency or urinary hesitancy Musc: Denies: neck pain or back pain Neuro: Reports: headache(s) (2-3 out of 10); Denies: numbness in extremities or weakness in extremities PFSH ED PFSH: Medical History Molar No pertinent past medical history Severe pre-eclampsia affecting second TBI (traumatic brain injury) 2020 Surgical History No pertinent past surgical history Family History Grandmother Cervical cancer Maternal Cancer Paternal--lung cancer Diabetes Maternal Grandfather Cancer paternal- colon cancer Family/Other Diabetes Maternal uncle Mother Hypertension Denies family history of CAD (coronary artery disease) Clotting disorder Hyperlipidemia Chronic kidney disease (CKD) Bleeding disorder Thyroid disease Stroke Physical Exam Const: COMMON NORMALS: no acute distress, patient oriented x3 and alert GENERAL APPEARANCE: cooperative ORIENTATION/CONSCIOUSNESS: Yes awake, Yes oriented to person, Yes oriented to place and Yes oriented to time Eye: COMMON NORMALS: Equal, round and reactive pupils present, EOMs intact bilaterally and conjunctivae normal GENERAL EYE: appearance normal, both eyes and all related structures ALIGNMENT: Yes alignment normal CONJUNCTIVA: Yes conjunctivae normal SCLERA: sclerae normal PUPIL: Yes Equal, round and reactive pupils present Neck/C-Spine: COMMON NORMALS: full ROM Resp: COMMON NORMALS: normal respiratory effort, No retractions, No use of accessory muscles and clear to auscultation bilaterally EFFORT & INSPECTION: Yes symmetric chest movement AUSCULTATION: clear to auscultation bilaterally Cardio: COMMON NORMALS: regular rate, regular rhythm, S1 normal heart sound present and S2 normal heart sound present RATE: regular rate RHYTHM: regular rhythm HEART SOUNDS: S1 normal heart sound present and S2 normal heart sound present GI: COMMON NORMALS: Normal to inspection, nondistended, normoactive bowel sounds present, Soft to palpation, non-tender, No hepatosplenomegaly present, no masses and no bruits INSPECTION: Yes normal to inspection PALPATION: Yes Soft to palpation and Yes No hepatosplenomegaly present : COMMON NORMALS: Yes no CVA tenderness BLADDER/KIDNEY EXAM: Yes no CVA tenderness Back/Pelvis: COMMON NORMALS: no CVA tenderness Neuro: COMMON NORMALS: patient oriented x3 and CN's II-XII intact bilaterally SENSORIUM/ORIENTATION: Yes alert, Yes oriented to person, Yes oriented to place and Yes oriented to time Psych: COMMON NORMALS: cooperative Course Vital Signs: Vital signs: Vital Signs Temperature 98.4 F 02/10/23 18:35 Pulse Rate 72 02/10/23 21:02 Respiratory Rate 16 02/10/23 21:02 Blood Pressure 144/97 02/10/23 21:02 Pulse Oximetry 99 02/10/23 21:02 Oxygen Delivery Me thod Room Air 02/10/23 21:02 [facility] - General Adult Medical Decision Making Consider headache, elevated blood pressure, Patient physical exam is benign. She is in no acute distress. She is alert and oriented. Her blood pressure although slightly elevated has been stable here at 144/97. Heart rate is stable. Patient is not having any chest pain or shortness of breath. Her visual disturbance has been resolved since prior to coming into the ER. I explained to the patient that I suspect that this could be lability from her missing a couple of days of her medication. I encouraged medication compliance. At this time I do not see any indication for immediate intervention for her blood pressure. I recommend that she follow-up tomorrow with her MOLD COOLER who has prescribed the Procardia for her. Return to the ER should symptoms return, she have new or worsening symptoms. Discharge Plan Discharge Patient Disposition: Home Clinical Impression: Elevated blood pressure reading, Headache Condition: Stable Prescriptions: No Action albuterol sulfate 90 mcg/actuation HFA aerosol inhaler 2 inh inhalation Q4H PRN (Reason: shortness of breath or wheezing) Qty: 6.7 0RF prenat.vits,jaylen,[id number] Tablet 1 tab PO DAILY lisinopril 20 mg tablet 20 mg PO DAILY citalopram 20 mg tablet 20 mg PO DAILY Qty: 90 4RF norethindrone (contraceptive) [Ortho Micronor] 0.35 mg tablet 0.35 mg PO DAILY Qty: 28 12RF nifedipine [Procardia XL] 30 mg tablet extended release 24hr 60 mg PO DAILY Discharge Orders: Discharge ED (Routine); Ordered 02/10/23 Ordered By: Daisy Trevino Discharge Diet: Usual diet Discharge Activity: Resume usual activity Patient Instructions: Hypertension (ED) Activity Restrictions/Additional Instructions: At this time, your blood pressure is stable. Continue medications as previously prescribed. Follow-up, tomorrow, with your MOLD COOLER who prescribes your blood pressure medication. Try your best not to miss any doses. Return to the ER for any return of symptoms, new or worsening symptoms. Make sure that you are staying well-hydrated. Coding Level of Care Code ED Desk Pen Set Assembler for Vanessa Galeana
--- NOTE | 2023-02-11 13:07 | DCPLANNER ---
TCM called patient due to no primary care physician - no answer at this time.
== END 2023-02-10 21:27 | disposition home or self-care (01) ==
PROVIDERS: Emergency Provider Nurse Practitioner Family
DX: R03.0 Elevated blood-pressure reading, without diagnosis of hypertension (principal); R51.9 Headache, unspecified; T46.1X6A Underdosing of calcium-channel blockers, initial encounter
CPT/HCPCS: 99282

== ENCOUNTER 2023-03-16 11:59 | Outpatient (CLI) | payer BC, OTHER, SELFPAY ==
[2023-03-16 12:59] LABS: Alanine Aminotransferase 17 U/L (0-33); Albumin Level 4.5 g/dL (3.5-5.2); Alkaline Phosphatase 108 U/L (35-105); Anion Gap 14.1 (5-19); Aspartate Amino Transferase 15 U/L (0-32); Blood Urea Nitrogen 12 mg/dL (6-20); Calcium 9.4 mg/dL (8.5-10.5); Carbon Dioxide 25 mmol/L (22-29); Chloride 103 mmol/L (98-107); Globulin 2.9 g/dL (1.3-4.6); Glomerular Filtration Rate 83.1 mL/min (90-130); Glucose 68 mg/dL (65-115); Osmolality Calculated 284 mOsm/kg (285-295); Potassium 4.1 mmol/L (3.5-5.1); Sodium 138 mmol/L (136-145); Total Bilirubin 0.2 mg/dL (0.15-1.2); Total Protein 7.4 g/dL (6.6-8.7)
== END 2023-03-16 12:00 | disposition home or self-care (01) ==
LOC: LAB 12:03
PROVIDERS: PCP Nurse Practitioner Family; Visit Provider Nurse Practitioner Family
DX: R74.8 Abnormal levels of other serum enzymes (principal)
CPT/HCPCS: 80053

== ENCOUNTER → 2023-06-23 09:17 | Outpatient (BNVA) | payer BC, OTHER, SELFPAY | PROVIDERS: PCP Nurse Practitioner Family; Visit Provider Nurse Practitioner Family | DX: R21 Rash and other nonspecific skin eruption; I10 Essential (primary) hypertension | CPT/HCPCS: 86003; 86008; 86618; 86666; 86757 ==

== ENCOUNTER → 2023-12-14 08:24 | Outpatient (BNVA) | payer OTHER, SELFPAY | PROVIDERS: PCP Nurse Practitioner Family; Visit Provider Nurse Practitioner Family | DX: R53.83 Other fatigue (principal); R53.82 Chronic fatigue, unspecified; L03.319 Cellulitis of trunk, unspecified | CPT/HCPCS: 80053; 84443; 85025 ==

== ENCOUNTER 2024-07-20 13:34 | Outpatient (CLI) | payer OTHER, SELFPAY ==
[2024-07-20 14:56] LABS: C.Diff PCR (Lab) NEGATIVE (Negative)
== END 2024-07-20 13:35 | disposition home or self-care (01) ==
LOC: LAB 13:35
PROVIDERS: PCP Nurse Practitioner Family; Visit Provider Nurse Practitioner Family
DX: R19.7 Diarrhea, unspecified (principal)
CPT/HCPCS: 87045; 87427; 87449; 87493

== ENCOUNTER 2024-10-07 23:22 | Emergency (ER) | payer OTHER, SELFPAY ==
[2024-10-07 23:25] VITALS: BP 141/89; PULSE 88; RESP 18; TEMP 36.7; O2SAT 100; BMI 40.3
--- NOTE | 2024-10-07 23:33 | ECG_ITS ---
[facility] 2024-10-07 Pat Name: Charlee Huddleston Department: Room: Gender: Female Spa Technician: : 1990 Requested By: Tunde Trent Order Number: [id number] Lama MD: Jose Alexander M.D. Measurements Intervals Royal Rate: 81 P: 37 NC: 181 QRS: 34 QRSD: 92 T: 29 QT: 346 QTc: 404 Interpretive Statements SINUS RHYTHM NONSPECIFIC T-WAVE ABNORMALITY Compared to ECG 11/12/2022 12:08:12 T-wave abnormality now present Electronically Signed On 10-10-2024 17:54:33 VEHICLE DAMAGE APPRAISER by Jose Alexander M.D. [email or web address]
== END 2024-10-08 01:16 | disposition left against medical advice (07) ==
PROVIDERS: Emergency Provider Family Medicine; PCP Nurse Practitioner Family
DX: Z53.21 Procedure and treatment not carried out due to patient leaving prior to being seen by health care provider (principal)
CPT/HCPCS: 93005